=== PATIENT | female | born 1975 | race Caucasian/White ===

== ENCOUNTER 2024-06-23 16:43 | Inpatient (IN) | payer OTHER, SELFPAY ==
[2024-06-23] VITALS (9 sets, daily range): BP systolic 121–139; BP diastolic 79–98; BMI 42.7
--- NOTE | 2024-06-23 12:55 | W.PN.CARDCBS ---
Today's Communication / Plan
-
[facility] today
Impression / Plan
-
This is a summary, see scanned H&P
PCP: Nitin Golden MD
CDY: Festus Ralph MD (new to pt)
48 years old female with past medical significant for MS presented to the emergency department at [facility] secondary to feeling chest pain on the left side and midline this morning when she was getting her child for school, she said she
also had some sweating and her face felt like it was flushing and hot, pain did not radiate anywhere, improved by itself, not associated with exertion, after she sent her child to the school she called her family doctor and she went to see him, EKG
was done in the office and they found that her heart rate was close to 150 bpm, they advised her to come to the emergency department, in the ER she had chest x-ray which was negative, CT angio chest which also was negative for PE and any other acute
issues, she also had troponin x 2 mild elevation (23) with normal CPK's. Today she denies any chest pain or SOB. She admits to having a stressful job and not sleeping recently. No recent emotional life events. No recent illnesses. No smoking or
significant EtOH use. Says she has had flushing in past but never as severe. Pain was under left breast and not pleuritic as previously described. EKG from PCP's office reviewed, likely sinus tachycardia can't exclude atrial tachycardia. Repeat EKGs
NSR.
Echo: global LV dysfunction with regional dysfunction of anterior wall, apex, EF 35-40%; Normal RV function, no effusion, normal valve function, normal LAP
Impression/Plan:
Suspected atypical Takotsubo's cardiomyopathy although biomarkers lower than what I would expect. No clear trigger but is under chronic work stress and hasn't been sleeping well. ACS due to epicardial CAD unlikely but can't exclude. Nothing to
suggest myocarditis. Tachy medicated cardiomyopathy is also in the differential, HRs have been < 100 since admission.
Will plan diagnostic cath today with Dr. Dorsey. If no significant CAD, plan will be to start GDMT and discharge within 48 hours with close follow up.
Her MS is stable and the monoclonal AB she is on is not cardiotoxic.
Progress Note - Turn Sewer
Subjective
Date of Service: June 23, 2024
denies cp, sob
Objective
Labs:
Laboratory Last Values
WBC 7.5 10^3/uL (4.5-11.0) 06/22/24 12:47
RBC 4.37 10^6/uL (4.20-5.40) 06/22/24 12:47
Hgb 14.1 gm/dL (11.3-15.0) 06/22/24 12:47
Hct 41.8 % (34.0-44.0) 06/22/24 12:47
MCV 96 fl (82-98) 06/22/24 12:47
RDW 12.5 % (11.0-15.0) 06/22/24 12:47
Plt Count 286 10^3/uL (150-400) 06/22/24 12:47
Neut % (Auto) 63 % (40-78) 06/22/24 12:47
Lymph % (Auto) 28 % (21-49) 06/22/24 12:47
Perkins % (Auto) 6 % (0-10) 06/22/24 12:47
Eos % (Auto) 2 % (0-4) 06/22/24 12:47
Baso % (Auto) 1 % (0-1) 06/22/24 12:47
Neut # (Auto) 4.7 10^3/uL (2.2-8.0) 06/22/24 12:47
Lymph # (Auto) 2.1 10^3/uL (1.0-4.0) 06/22/24 12:47
Perkins # (Auto) 0.5 10^3/uL (0.0-1.0) 06/22/24 12:47
Eos # (Auto) 0.1 10^3/uL (0.0-0.4) 06/22/24 12:47
Baso # (Auto) 0.0 10^3/uL (0.0-0.1) 06/22/24 12:47
ESR 3 mm/hr (1-20) 06/23/24 04:33
PT 13.8 SECONDS (11.5-14.4) 06/22/24 20:51
INR 1.05 INR 06/22/24 20:51
APTT 29 SECONDS (23-37) 06/22/24 20:51
D-Dimer < 0.27 ug/ml (0.00-0.49) 06/22/24 12:47
Sodium 139 mmol/L (136-145) 06/22/24 12:47
Potassium 4.0 mmol/L (3.5-5.1) 06/22/24 12:47
Chloride 105 mmol/L (98-107) 06/22/24 12:47
Carbon Dioxide 22.2 mmol/L (22.0-29.0) 06/22/24 12:47
Anion Gap 12 (7-16) 06/22/24 12:47
BUN 11 mg/dL (6-20) 06/22/24 12:47
Creatinine 0.78 mg/dL (0.50-0.90) 06/22/24 12:47
GFR Calculation 93 (Over 90) 06/22/24 12:47
BUN/Creatinine Ratio 14.1 (7.0-25.0) 06/22/24 12:47
Fasting Glucose 107 mg/dL (70-110) 06/22/24 12:47
Calcium 8.9 mg/dL (8.6-10.0) 06/22/24 12:47
Magnesium 2.0 mg/dL (1.6-2.6) 06/23/24 04:33
Total Bilirubin 0.7 mg/dL (0.1-1.2) 06/22/24 12:47
AST 23 U/L (0-32) 06/22/24 12:47
ALT 22 U/L (0-33) 06/22/24 12:47
Alkaline Phosphatase 80 U/L (35-105) 06/22/24 12:47
Total Creatine Kinase 67 U/L (20-180) 06/23/24 04:33
CK-MB (CK-2) 1.3 ng/mL (0.0-5.0) 06/23/24 11:06
CK-MB (CK-2) Rel Index Not Reportable 06/23/24 11:06
Troponin T 5th Gen ng/L < 6 ng/L (0-14) 06/23/24 11:06
C-Reactive Protein 0.3 mg/dL (0.0-0.5) 06/23/24 04:33
NT-Pro-B Natriuret Pep 208 pg/mL (0-300) 06/22/24 15:07
Total Protein 6.6 g/dL (6.5-8.3) 06/22/24 12:47
Albumin 4.1 g/dL (3.5-5.2) 06/22/24 12:47
Globulin 2.5 g/dL (2.3-3.5) 06/22/24 12:47
Albumin/Globulin Ratio 1.6 (1.1-1.7) 06/22/24 12:47
Triglycerides 191 mg/dL (60-150) H 06/23/24 04:33
Cholesterol 172 mg/dL (150-200) 06/23/24 04:33
LDL Cholesterol, Calc 75 mg/dL (110-160) L 06/23/24 04:33
HDL Cholesterol 59 mg/dL (40-60) 06/23/24 04:33
Cholesterol/HDL Ratio 2.90 (2.00-5.00) 06/23/24 04:33
TSH 3rd Generation 2.270 mcIU/mL (0.270-4.20) 06/22/24 15:07
Serum , Qual Negative (Negative) 06/22/24 15:07
Urine Color Yellow (YELLOW) 06/22/24 15:07
Urine Clarity Clear (CLEAR) 06/22/24 15:07
Urine pH 6.0 (5.0-7.0) 06/22/24 15:07
Ur Specific [place] 1.025 (1.006-1.029) 06/22/24 15:07
Urine Protein Negative (NEG-TRACE) 06/22/24 15:07
Urine Glucose (UA) Negative (NEG) 06/22/24 15:07
Urine Ketones 40 (NEG) H 06/22/24 15:07
Urine Blood Small (NEG) H 06/22/24 15:07
Urine Nitrate Negative (NEG) 06/22/24 15:07
Urine Bilirubin Negative (NEG) 06/22/24 15:07
Urine Urobilinogen Normal (0.2-1.0) 06/22/24 15:07
Ur Leukocyte Esterase Negative (NEG) 06/22/24 15:07
Urine RBC 6-10 /hpf (1-5) H 06/22/24 15:07
Urine Microscopic WBC 0 /hpf (0-5) 06/22/24 15:07
Ur Epithelial Cells 11-15 /hpf (0) H 06/22/24 15:07
Urine Bacteria Noted (PATIENT ACCESS MANAGER) H 06/22/24 15:07
Influenza A (PCR) Negative (NEGATIVE) 06/22/24 15:32
Influenza B (RT-PCR) Negative (NEGATIVE) 06/22/24 15:32
POC RSV (MYRTLE) Negative (NEGATIVE) 06/22/24 15:32
SARS-CoV-2 (PCR) Negative (NEGATIVE) 06/22/24 15:32
Physical Exam
Physical Exam
NAD, AOX3
S1, S2, RRR
CTAB< non labored
SNTND bsx4
No LE edema
--- NOTE | 2024-06-23 16:29 | ITS.CL.CATH ---
[facility] - Catheterization
Cardiac Catheterization
Procedure Report:
LEFT HEART CATHETERIZATION
Date of Procedure: June 23, 2024
Procedures performed:
1: Coronary angiography
2: Left ventriculography
Primary Care Physician: Dr. Nitin Golden
Primary Wire Stretcher: Dr. Glynn Ralph
INDICATION: The patient is a 48-year-old woman who presents to the [facility] emergency room yesterday with tachycardia and atypical chest pain. Serial cardiac enzymes are benign however she did have dynamic EKG changes. Echocardiography
today shows moderate to severe global LV systolic dysfunction with a visually estimated ejection fraction of 30%. She is currently asymptomatic.
ACCESS: The patient was prepped and draped in usual sterile fashion. A 5 Japanese sheath was placed in the right radial artery using the Seldinger over the wire technique.
HEMODYNAMIC FINDINGS (mmHg):
LV(s/d,EDP): 112/8, 13
Ao(s/d,m): 112/79, 92
ANGIOGRAPHIC FINDINGS:
Single-plane Left Ventriculography in CAMPBELL Projection: Moderate to severe global LV systolic dysfunction. No significant mitral regurgitation. Visually estimated ejection fraction 35-40%.
Coronary Angiography:
Dominance: Right
Left Main: Normal
Left Anterior Descending: The left anterior descending artery is a relatively large caliber vessel that gives rise to 1 major diagonal branch. These vessels appear angiographically normal with normal flow.
Left Circumflex: The left circumflex artery is a large nondominant system that gives rise to 3 major distal branches. These vessels are widely patent with normal flow.
Right Coronary: The right coronary artery is a large-caliber dominant vessel that gives rise to a medium caliber posterior descending artery and larger posterior left ventricular branch system. These vessels are angiographically normal.
Fluoroscopy Time (min): 4.5
Radiation Dose (mGy): 488
DAP (Gy.cm2): 42
Closure device: None. A TR band was applied for hemostasis at the right wrist.
Complications: None.
ASSESSMENT:
1: Normal coronary arteries. This is clearly a nonischemic cardiomyopathy.
2: Moderate to severe LV systolic dysfunction with well compensated left ventricular filling pressures.
CONCLUSIONS and RECOMMENDATIONS:
1: Medical therapy for a nonischemic cardiomyopathy. It is not clear to me whether this is a transient new problem or just the first presentation of a more chronic problem. Start goal-directed medical therapy with beta-lydia and angiotensin
receptor lydia with close clinical follow-up with Dr. Ralph.
2: Will get 24-hour urine fractionated metanephrines and catecholamines to rule out catecholamine producing tumor with her history of peculiar facial flushing. Given her absence of hypertension and any other symptoms with her chronic symptoms I
think the likelihood of this being an explanation for her flushing is less likely.
Erik Dorsey M.D.
Copy to: Dr. Nitin Golden
[2024-06-23] MEDS: NSS 1000 IV (16:54)
--- NOTE | 2024-06-23 17:26 | PTCARENOTE ---
Received pt from photonic laboratory technician. Right radial site is clean dry and intact with hemostasis band on. no bleeding or hematoma noted. SpO2 98-100% on RA. SR in the 90s on the monitor. Denies chest pain or SOB. Educated pt on activity restrictions and
verbalized understanding. Oriented to room. Call martino within reach.
[2024-06-23] MEDS: TOPROL XL 25 MG PO (18:05)
[2024-06-23] MEDS: TYLENOL 650 MG PO (20:47)
--- NOTE | 2024-06-23 21:08 | PTCARENOTE ---
Pt rec'd at change of shift sitting on side of bed. C/O H/A but refused Tylenol at first agreeable to at 2046 for 4 out of 10 discomfort. Also c/o mild discomfort at cath site. right radial site with DDI. No active bleeding or hematoma present,good
pulse. Sinus on telemetry.
[2024-06-23] MEDS: PAMELOR 50 MG PO (22:19)
[2024-06-23] MEDS: LIORESAL 20 MG PO (22:19)
[2024-06-24 04:45] VITALS: BP 115/75
[2024-06-24 04:50] VITALS: BMI 42.4
[2024-06-24 05:16] LABS: Hematocrit 36.2 % (37.0-47.0); Hemoglobin 12.4 g/dL (12.0-16.0); Mean Corp Hgb Conc. 34.3 g/dL (33.0-37.0); Mean Corpuscular Hgb 32.8 pg (27.0-31.0); Mean Corpuscular Volume 95.8 fL (81.0-99.0); Platelet Count 227 10^3/uL (130-400); Red Blood Cell Count 3.78 10^6/uL (4.20-5.40); Red Cell Dist. Width 12.4 % (11.5-14.5); White Blood Cell Count 5.4 10^3/uL (4.8-10.8)
[2024-06-24 05:52] LABS: Blood Urea Nitrogen 9 mg/dl (7-17); Carbon Dioxide 28 mmol/L (22-30); Chloride 107 mmol/L (98-107); Estimated Creatinine Clearance 115 ml/min; Glucose 93 mg/dl (70-99); Sodium 139 mmol/L (135-145); eGFR > 60.00
[2024-06-24 07:25] VITALS: BP 117/82
[2024-06-24] MEDS: COZAAR 25 MG PO (07:51)
--- NOTE | 2024-06-24 09:32 | W.PN.CARDCBS ---
Addendum entered and electronically signed by Liang Price MD 06/24/24 11:50:
I saw and examined the patient.
The Carton Catcher's note was reviewed and I agree with the note.
Comment:
GEN: No distress, awake, Ox3
HEENT: supple, anicteric, mmm
LUNGS: CTA, no wheezes/rales
CV: Reg, S1/S2, 1/6 syst LSB, no gallop
ABD: soft, BS+, NT/ND
EXT: No edema
NEURO: Gross non-focal
SKIN: No rash
plan:
Overall doing well status post cath. 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 LV filling pressures were compensated.
LVEF 35 to 40%.
Continue Toprol and losartan. Watch for hypotension. Can consider Entresto, Aldactone, and Farxiga as outpatient.
Will arrange outpatient monitor to look for arrhythmia.
Follow-up with ATC.
Addendum entered and electronically signed by ALETHEA Don 06/24/24 10:55:
pt is Morbidly obese due to excessive calories with BMI 42.4kg/m2
Original Note:
Today's Communication / Plan
-
stable for d/c home
Impression / Plan
-
This is a summary, see scanned H&P
PCP: Nitin Golden MD
CDY: Festus Ralph MD (new to pt)
48 years old female with past medical significant for MS presented to the emergency department at [facility] secondary to feeling chest pain on the left side and midline this morning when she was getting her child for school, she said she
also had some sweating and her face felt like it was flushing and hot, pain did not radiate anywhere, improved by itself, not associated with exertion, after she sent her child to the school she called her family doctor and she went to see him, EKG
was done in the office and they found that her heart rate was close to 150 bpm, they advised her to come to the emergency department, in the ER she had chest x-ray which was negative, CT angio chest which also was negative for PE and any other acute
issues, she also had troponin x 2 mild elevation (23) with normal CPK's. Today she denies any chest pain or SOB. She admits to having a stressful job and not sleeping recently. No recent emotional life events. No recent illnesses. No smoking or
significant EtOH use. Says she has had flushing in past but never as severe. Pain was under left breast and not pleuritic as previously described. EKG from PCP's office reviewed, likely sinus tachycardia can't exclude atrial tachycardia. Repeat EKGs
NSR.
06/22/24 Echo: global LV dysfunction with regional dysfunction of anterior wall, apex, EF 35-40%; Normal RV function, no effusion, normal valve function, normal LAP
06/23/24 LHC: Normal coronary arteries. This is clearly a nonischemic cardiomyopathy. Moderate to severe LV systolic dysfunction with well compensated left ventricular filling pressures.
Impression/Plan:
Post cath with normal coronary arteries, mod-severe LV dysfunction
Rad site stable
tele SR with PVC's, 3b NSVT
GDMT for new CM - initiated metoprolol 25xl and losartan 25mg daily, can titrate as outpt
Will have 2 week Holter monitor placed in office ATC tomorrow to assess for tachycardia induced CM
Outpt eval with 24hr urine to assess for metanephrines and catecholamines to r/o tumor with h/o facial flushing
Her MS is stable and the monoclonal AB she is on is not cardiotoxic.
Activity restrictions reviewed
f/u Dr. Ralph 2-4 weeks
home today
Progress Note - Bone Char Kiln Tender
Subjective
Date of Service: June 24, 2024
no cp, sob, fatigued
Objective
Labs:
06/24/24 04:57
06/24/24 04:57
Labs
Hgb 12.4 g/dL (12.0-16.0) 06/24/24 04:57
Hct 36.2 % (37.0-47.0) L 06/24/24 04:57
Plt Count 227 10^3/uL (130-400) 06/24/24 04:57
Sodium 139 mmol/L (135-145) 06/24/24 04:57
Potassium 4.0 mmol/L (3.5-5.1) 06/24/24 04:57
BUN 9 mg/dl (7-17) 06/24/24 04:57
Creatinine 0.7 mg/dL (0.6-1.0) 06/24/24 04:57
Glucose 93 mg/dl (70-99) 06/24/24 04:57
Vital Signs and I&O:
Vital Signs
Temp Pulse Resp BP Pulse Ox
97.5 F 100 20 117/82 97
06/24/24 07:26 06/24/24 08:30 06/24/24 07:26 06/24/24 07:25 06/24/24 07:26
Vital Signs
Temp Pulse Resp BP Pulse Ox
97.5 F 100 20 117/82 97
06/24/24 07:26 06/24/24 08:30 06/24/24 07:26 06/24/24 07:25 06/24/24 07:26
Intake & Output
06/22/24 06/23/24 06/24/24 06/25/24
06:59 06:59 06:59 06:59
Intake Total 700 / 700
Balance 700 / 700
Physical Exam
Physical Exam
NAD, AOX3
S1, S2, RRR
CTAB, non labored, no wheeze
SNTND bsx4
R rad site c/d/i no HT, good pulse
--- NOTE | 2024-06-24 10:17 | PN.CDI ---
CDI
- -
CDI:
Physician Documentation Request
Admit Date: 06/23/24 16:43
Dear ALETHEA Lovett,
Please review the following and provide your response in the progress notes.
Clinical Indicators:
Selected Entries
06/23/24
14:40 06/24/24
04:50
Body Mass Index (BMI) 42.7 42.4
Please provide an associated diagnosis related to the abnormal BMI, such as:
BMI, 42.7, obesity
Other (please specify)
BMI > or = to 40
Overweight
Obesity:
Due to excess calories
Drug induced
Due to other cause
Severe or morbid obesity:
With alveolar hypoventilation (Obesity hypoventilation syndrome)
Without alveolar hypoventilation
Use of terms such as suspected, likely, concern for, or probable (associated with a specific diagnosis that is being evaluated, monitored, or treated as if it exists) are acceptable and can be coded in the inpatient setting, when documented at the
time of discharge.
Thank you,
Mouna Steen RN BSN CCDS
CDI Specialist
Please contact via tiger text
Please use your independent medical judgment in providing your response.
[2024-06-24] MEDS: TYLENOL 650 MG PO (11:09)
[2024-06-24 11:57] VITALS: BP 125/92
--- NOTE | 2024-06-24 12:20 | CM ---
CM following for DC planning needs.
Met w/ patient + spouse at bedside to complete initial assessment.
Pt. resides w/ spouse, dtr. (age 10) in a private, multi level home. Functionally, patient is indep. with ADLs, mobility and uses a SPC while out in the community PRN.
Pt. has RX plan and uses [facility] in [place] for prescription needs.
Antic. DC plan is for home, no needs.
Will follow.
--- NOTE | 2024-06-24 13:47 | W.DS.TRANS ---
DC Summary - [employer]
-
Discharge Instructions:
Discharge Diagnosis/Procedures Cardiac cath, Cardiomyopathy
Diet Low Sodium
Driving Restrictions No driving for 24 hours
Specialty Instructions Weigh Daily
Instructions:
Stand-Alone Forms: DC Instructions- Cath/EP Lab
Changes to Home Medications: Yes
Discharge Medications:
DC Medications w/original date entered in [employer]
baclofen 20 mg tablet 20 mg PO TID PRN stiffness 06/23/24
nortriptyline 50 mg capsule 50 mg PO HS Mental Health/Anxiety 06/23/24
ocrelizumab 30 mg/mL intravenous solution (Ocrevus) 600 mg IV [id number] 06/23/24
losartan 25 mg tablet 25 mg PO DAILY #90 tabs 06/24/24
metoprolol succinate 25 mg tablet,extended release 24 hr 25 mg PO QPM #90 tabs 06/24/24
Home Medication Changes
new to metoprolol and losartan
Pending Results: No
--- NOTE | 2024-06-24 14:52 | PTCARENOTE ---
IV and tele removed. Discharge instructions reviewed w/ pt and spouse. Verbalizes understanding. Belongings collected and sent home w/ pt. Escorted via WC and staff assist. D/c to home.
== END 2024-06-24 14:53 | disposition home or self-care (01) | DRG 287 ==
LOC: IVU 16:43
PROVIDERS: Nurse Practitioner Adult Health; ADMITTING PHYSICIAN Internal Medicine Interventional Cardiology; ATTENDING PHYSICIAN Internal Medicine Interventional Cardiology; FAMILY PHYSICIAN Family Medicine
PROC: B2111ZZ Fluoroscopy of Multiple Coronary Arteries using Low Osmolar Contrast (ICD-10-PCS; 2024-06-23)
PROC: 4A023N7 Measurement of Cardiac Sampling and Pressure, Left Heart, Percutaneous Approach (ICD-10-PCS; 2024-06-23)
DX: I42.8 Other cardiomyopathies (principal); Z68.41 Body mass index [BMI] 40.0-44.9, adult; I47.20 Ventricular tachycardia, unspecified; I25.10 Atherosclerotic heart disease of native coronary artery without angina pectoris; E66.01 Morbid (severe) obesity due to excess calories; I49.3 Ventricular premature depolarization; G35 Multiple sclerosis; R06.02 Shortness of breath
CPT/HCPCS: 80048; 85027; 93458; C1894; Q9967